=== PATIENT | female | born 1960 | race Caucasian/White ===

== ENCOUNTER 2021-09-28 13:56 | Inpatient (IN) ==
[2021-09-28] MEDS ORDERED: Naloxone 0.4 MG/ML INJ IVP PRN (17:48)
[2021-09-28] MEDS ORDERED: Melatonin 3 MG TABLET PO PRN (17:53)
[2021-09-28] MEDS ORDERED: Saline Nasal Spray 44 ML BOTTLE NS PRN (18:16)
[2021-09-28] MEDS: Ipratropium 1 PUFF INHALER IH SCH ×2 (19:48→23:27)
[2021-09-29 02:17] LABS: Basophils % 0.6 %; White Blood Count 1.8 K/mcL (4.3-11.1)
[2021-09-29 02:18] LABS: Hematocrit 40.3 % (35.3-44.9); Hemoglobin 13.1 g/dL (11.5-15.4); Lymphocytes # 0.7 K/mcL (0.6-4.6); Lymphocytes % 36.9 %; Mean Corpuscular HGB Conc 32.5 g/dL (31.6-35.5); Mean Corpuscular Hemoglobin 30.8 pg (28.0-33.3); Mean Corpuscular Volume 94.6 fL (83.0-100.0); Mean Platelet Volume 9.9 fL (9.4-12.4); Monocytes # 0.1 K/mcL (0.0-1.3); Monocytes % 7.8 %; Platelet Count 178 K/mcL (140-400); Red Blood Count 4.26 M/mcL (3.82-4.97); Red Cell Distribution Width 13.8 % (11.5-14.5); Segmented Neutrophils % 54.7 %
[2021-09-29 02:36] LABS: BUN/Creatinine Ratio 23 (6-26); Blood Urea Nitrogen 16 mg/dL (8-23); C-Reactive Protein 65 mg/L (Less than 10); Calcium 8.7 mg/dL (8.6-10.3); Carbon Dioxide 20 mEq/L (23-29); Chloride 106 mEq/L (98-107); Glucose 125 mg/dL (70-105); Osmolality,Calculated 287 (280-300); Potassium 3.6 mEq/L (3.5-5.1); Sodium 137 mEq/L (136-145); eGFR For African Americans > 60 (> 60); eGFR For Non-African Americans > 60 (> 60)
[2021-09-29 03:01] LABS: Platelet Estimate Normal (Normal)
[2021-09-29] MEDS: Ipratropium 1 PUFF INHALER IH SCH ×6 (04:04→23:49)
[2021-09-29] MEDS: *HR* Enoxaparin 40 MG/0.4 ML SYRINGE SQ SCH (04:35)
[2021-09-29] MEDS: Acetaminophen 325 MG TABLET PO PRN ×2 (04:39→17:37)
[2021-09-29] MEDS: Dexamethasone Sodium Phos/PF 10 MG/ML VIAL IVP SCH (09:35)
[2021-09-29] MEDS: Nicotine 21 MG PATCH.TD24 TD SCH (09:48)
[2021-09-30 00:43] LABS: Basophils % 0.3 %; Hematocrit 38.6 % (35.3-44.9); Hemoglobin 12.8 g/dL (11.5-15.4); Immature Granulocytes % 0.3 % (0-4); Lymphocytes % 35.6 %; Mean Corpuscular HGB Conc 33.2 g/dL (31.6-35.5); Mean Corpuscular Hemoglobin 30.8 pg (28.0-33.3); Mean Platelet Volume 9.8 fL (9.4-12.4); Monocytes # 0.2 K/mcL (0.0-1.3); Monocytes % 5.5 %; Neutrophils # 1.7 K/mcL (1.6-8.9); Platelet Count 211 K/mcL (140-400); Red Blood Count 4.15 M/mcL (3.82-4.97); Red Cell Distribution Width 13.8 % (11.5-14.5); Segmented Neutrophils % 58.3 %
[2021-09-30 00:55] LABS: White Blood Count 2.9 K/mcL (4.3-11.1)
[2021-09-30 01:04] LABS: BUN/Creatinine Ratio 27 (6-26); Blood Urea Nitrogen 19 mg/dL (8-23); Calcium 8.7 mg/dL (8.6-10.3); Carbon Dioxide 25 mEq/L (23-29); Chloride 103 mEq/L (98-107); Glucose 118 mg/dL (70-105); Osmolality,Calculated 287 (280-300); Sodium 137 mEq/L (136-145); eGFR For African Americans > 60 (> 60); eGFR For Non-African Americans > 60 (> 60)
[2021-09-30 01:17] LABS: Thyroid Stimulating Hormone 0.412 mcIU/mL (0.340-5.600)
[2021-09-30] MEDS: Ipratropium 1 PUFF INHALER IH SCH ×3 (03:34→11:40)
[2021-09-30] MEDS: *HR* Enoxaparin 40 MG/0.4 ML SYRINGE SQ SCH (05:55)
[2021-09-30 08:59] VITALS: BP 121/69; PULSE 94; TEMP 98.3
[2021-09-30] MEDS: Nicotine 21 MG PATCH.TD24 TD SCH (09:42)
[2021-09-30] MEDS: Dexamethasone Sodium Phos/PF 10 MG/ML VIAL IVP SCH (09:43)
[2021-09-30 11:41] VITALS: O2SAT 94
== END 2021-09-30 17:02 | disposition home or self-care (01) | DRG 177 ==
LOC: 3BNU
PROVIDERS: ADMIT Pharmacist; ATTEND Pharmacist